=== PATIENT | male | born 1995 | race Caucasian/White ===

== ENCOUNTER 2016-09-22 20:19 | Emergency (ER) | payer OTHER ==
[2016-09-22 20:26] VITALS: BP 142/93; PULSE 76; RESP 20; O2SAT 100
--- NOTE | 2016-09-22 21:55 | ED.REPORT ---
HPI-General Illness Date of Service Sep 22, 2016 ED Provider: Kamari Portillo Patient is a 21 year old male who presents to the ED complaining of sore throat onset 2 weeks ago. He noticed white spots on his tonsils two weeks ago but ignored it because he didn't have a fever or any pain. The last few days he has had trouble talking and pain with swallowing. He can no longer swallow food without pain. He denies fever, cough, or any other symptoms. Nursing Notes Stated Complaint: INFLAMED TONSILS/SORE THROAT Chief Complaint: General Complaint Nursing Notes Reviewed: Yes Allergies: Coded Allergies: No Known Allergies (Unverified , 09/22/16) Scheduled Amoxicillin/Clav K 875-125 mg (Augmentin 875-125 mg) 1 Each Tablet 1 TABLET PO BID Prednisone (PredniSONE) 50 Mg Tablet 50 MG PO DAILY Scheduled PRN Naproxen (Naproxen) 500 Mg Tab 500 MG PO BID PRN PRN For Pain General Time Seen by MD: 21:55 Chief Complaint Sore throat Hx Obtained From: Patient Arrived By: Walk-in Onset Occurred: More than a week ago... (2 weeks) Similar Sx Previous: No Past Medical History Past Medical History Healthy Past Surgical History [place] teeth extraction Toe surgery Smoking History Unknown if Ever Smoker Social History Alcohol Use: Denies alcohol use Other Social History: Good social support Ambulatory Status Independent Review of Systems Full Review of Systems Constitutional: Denies: Chills, Fever Ears / Nose / Throat: Reports: Sore throat, Throat pain GI: Denies: Nausea, Vomiting Complete sys rev & neg: except as marked. Physical Exam Vital Signs Vital Signs Date Time Temp Pulse Resp B/P Pulse Ox O2 Delivery O2 Flow Rate FiO2 09/22/16 23:58 73 16 98 Room Air 09/22/16 20:26 36 76 20 142/93 100 Room Air Initial VS: Reviewed General/Constitutional: Well-developed, Well-nourished Head / Eyes: Atraumatic, Normocephalic Respiratory: No respiratory distress Abdomen / GI: Soft, Non-tender Skin: Warm, Dry Neurologic: Alert, Oriented, Nonfocal Psychiatric: Mood/affect normal, Behavior normal, Normal thought content ENT: No pooling of secretions Left Tonsillar swelling mild uvular deviation white patchy plaques on tonsils no trismus no throat neck fullness tenderness Manages secretions well. Neck: No adenopathy Interpretation & Diagnostics Lab Results Interpretation Lab Results Interpretation: Strep negative Re-Eval/Medical Decision Med Decision/Clinical Course Likely peritonsillar abscess as the patient has unilateral left-sided tonsillar swelling with mild uvular deviation, he is feeling much better after medicating in the ER and will be discharged on prednisone and Augmentin to follow-up with ENT. Return precautions given. Time of Eval: 23:23 Patient Status: Condition improved Re-Evaluation/Progress Note: Rechecked patient. He is able to swallow better. Agrees to follow up with ENT. Discussed plan for discharge. Patient understands and agrees with plan. All questions addressed at this time. Counseled Regarding: Diagnosis, Need for follow-up, When/why to return to ED Discharge & Departure Primary Impression: Peritonsillar abscess Disposition: Home Discharge Condition All VS Reviewed: Yes Condition: Improved Additional Instructions: Thank you for entrusting us with you care. Take your steroids daily as prescribed. Call tomorrow to follow up with an ENT specialist. Return to the ED if you experience any new or worsening symptoms. Referrals: [facility] Scribe Attestation Portions of this note were transcribed by Keyonna Thonre. I, Dr. Portillo personally performed the history, physical exam and medical decision-making; I reviewed and confirmed the accuracy of the information in the transcribed note. Signed by: Keyonna Thorne 09/22/2016, 2351 Kamari Portillo DO Sep 22, 2016 21:55 KEYONNA THORNE Sep 22, 2016 22:08
[2016-09-22] MEDS ORDERED: Amoxicillin-Clav 875-125 mg Tablet PO ONE (22:05)
[2016-09-22] MEDS ORDERED: Dexamethasone 20 mg/2 mL Oral Solution PO ONE (22:05)
[2016-09-22] MEDS ORDERED: NPR500T PO (23:49)
[2016-09-22] MEDS ORDERED: AMOX-366 PO (23:49)
[2016-09-22] MEDS ORDERED: PRED50TA PO (23:49)
[2016-09-22 23:58] VITALS: PULSE 73; RESP 16; O2SAT 98
== END 2016-09-22 23:56 | disposition home or self-care (01) ==
LOC: SED 20:19
DX: J36 Peritonsillar abscess (principal); Z98.818 Other dental procedure status